=== PATIENT | female | born 1935 | race Caucasian/White ===

== ENCOUNTER 2022-01-23 20:04 | Emergency (ER) | payer MEDICARE ==
[~2022-01-23] VITALS: Ht 160 cm; Wt 58.1 kg
[2022-01-23 20:21] VITALS: BP_SYST 162
--- NOTE | 2022-01-23 20:25 | NUR ---
PATIENT STATES SHE HAS BEEN OFF OF HYPERTENSION MEDICATION SINCE THE SUMMER AND JUST STARTED TAKING HER MEDICATION AGAIN AND AT HOME, BLOOD PRESSURE WAS 199/100. NO SYMPTOMS. HAS BEEN ON HER HTN MEDS FOR TWO DAYS.
--- NOTE | 2022-01-23 21:10 | NUR ---
PATIENT AMBULATED TO LEMON BED 1 WITHOUT ISSUE, WAITING FOR EVAL.
--- NOTE | 2022-01-23 21:18 | NUR ---
DR. CALHOUN AT BEDSIDE.
--- NOTE | 2022-01-23 21:27 | NUR ---
Patient given written and verbal discharge instructions and verbalizes understanding. ER MD discussed with patient the results and treatment provided. Patient in stable condition. ID arm band removed. IV catheter removed intact and dressing applied, no active bleeding. Rx of N/A given. Patient educated on pain management and to follow up with PMD. Pain Scale . Opportunity for questions provided and answered. Medication side effect fact sheet provided.
== END 2022-01-23 21:27 | disposition home or self-care (01) ==
LOC: SED 20:04
DX: I10 Essential (primary) hypertension (principal); Z79.899 Other long term (current) drug therapy
CPT/HCPCS: 99281

== ENCOUNTER 2022-09-29 04:10 | Emergency (ER) | payer MEDICARE ==
[~2022-09-29] VITALS: Ht 160 cm; Wt 57.6 kg
[2022-09-29 04:23] VITALS: BP_SYST 198; PULSE 60; RESP 20; TEMP 97.1; O2SAT 99
[2022-09-29] MEDS ORDERED: MAG-AL HYDROX/SIMETH 30 ML UDC PO ONE (04:45)
[2022-09-29] MEDS ORDERED: ONDANSETRON 4 MG ODT TAB PO ONE (04:45)
[2022-09-29 04:54] LABS: BILIRUBIN,URINE NEGATIVE (NEGATIVE); BLOOD, URINE 1+ (NEGATIVE); COLOR,URINE YELLOW (YELLOW); GLUCOSE,URINE NEGATIVE (NEGATIVE); KETONES,URINE NEGATIVE (NEGATIVE); LEUKOCYTE ESTERASE ,URINE TRACE (NEGATIVE); NITRITE, URINE NEGATIVE (NEGATIVE); PROTEIN URINE NEGATIVE (NEGATIVE); UROBILINOGEN,URINE 0.2 (0.2-1.0)
[2022-09-29 05:02] LABS: BASOPHILS % (AUTO) 0.2 % (0.0-2.0); EOSINOPHILS # (AUTO) 0.1 K/uL (0.0-0.4); EOSINOPHILS % (AUTO) 1.5 % (0.0-4.0); HEMATOCRIT 40.1 % (36-48); HEMOGLOBIN 13.4 g/dL (12.0-16.0); LYMPHOCYTES # (AUTO) 1.9 K/uL (1.0-5.5); LYMPHOCYTES % (AUTO) 29.6 % (20.5-51.5); MEAN CORPUSCULAR HEMOGLOBIN 30 pg (27-31); MEAN CORPUSCULAR HGB CONC 33 % (32-36); MEAN CORPUSCULAR VOLUME 90 fL (79.0-98.0); MONOCYTES # (AUTO) 0.5 K/uL (0.0-1.0); MONOCYTES % (AUTO) 7.5 % (1.7-9.3); NEUTROPHILS # (AUTO) 3.8 K/uL (1.8-7.7); NEUTROPHILS % (AUTO) 61.2 % (40.0-70.0); PLATELET COUNT (AUTO) 338 K/uL (130-430); RED BLOOD CELL COUNT(AUTO) 4.47 MIL/uL (4.2-6.2); RED CELL DISTRIBUTION WIDTH 13.1 % (9.0-15.0); WHITE BLOOD COUNT (AUTO) 6.3 K/uL (4.8-10.8)
[2022-09-29 05:03] LABS: CLARITY/URINE SLIGHTLY CLOUDY (CLEAR)
[2022-09-29 05:04] LABS: BACTERIA,URINE FEW /HPF (None Seen)
[2022-09-29 05:13] LABS: ANION GAP 10 (5-15); CALCIUM 9.2 mg/dL (8.4-11.0); CHLORIDE 106 mmol/L (98-107); CREATININE 1.28 mg/dL (0.55-1.30); GLUCOSE 111 mg/dL (74-106); UREA NITROGEN, BLOOD 25 mg/dL (8-21)
[2022-09-29 05:17] LABS: ALANINE AMINOTRANSFERASE 18 U/L (12-78); ALBUMIN 3.5 g/dL (3.4-4.8); ASPARTATE AMINOTRANSFERASE 19 U/L (10-37); LIPASE 114 U/L (73-393); TOTAL BILIRUBIN 0.3 mg/dL (0.0-1.0)
[2022-09-29] MEDS ORDERED: OMEP20CA15 PO (07:08)
[2022-09-29 07:14] VITALS: BP_SYST 146; PULSE 55; RESP 14; TEMP 98.2; O2SAT 94
== END 2022-09-29 07:14 | disposition home or self-care (01) ==
LOC: SED 04:10
DX: R10.13 Epigastric pain (principal); R10.31 Right lower quadrant pain; R11.0 Nausea; I10 Essential (primary) hypertension; Z79.899 Other long term (current) drug therapy
CPT/HCPCS: 99284; 74176; 80053; 81000; 83690; 85025; 87086; 84484; 36415; 76376; Q0162; 93005